=== PATIENT | female | born 1985 | race African-American/Black ===

== ENCOUNTER 2021-05-10 09:02 | Emergency (ER) | payer BC, OTHER ==
[~2021-05-10] VITALS: Ht 170.2 cm; Wt 63.5 kg
[2021-05-10 09:41] LABS: HEMATOCRIT. 34.1 % (36.0-48.0); HEMOGLOBIN. 11.4 g/dL (12.0-16.0); MEAN CORPUSCULAR HEMOGLOBIN 27.9 pg (28.0-32.0); MEAN CORPUSCULAR VOLUME 83.8 fL (81.0-99.0); MEAN PLATELET VOLUME 7.8 fl (7.4-10.4); PLATELET 309 x1000/uL (130-400); RED BLOOD CELL COUNT 4.07 mill/uL (4.2-5.4)
[2021-05-10] MEDS ORDERED: ONDANSETRON HCL 4MG/2ML INJ IV ONE (09:45)
[2021-05-10 09:51] LABS: CHLORIDE 104 mEq/L (98-107)
[2021-05-10 09:52] LABS: INR 1.1; PROTHROMBIN TIME 11.4 sec (9.6-11.0)
[2021-05-10 10:01] LABS: B-HCG QUANTITATIVE < 1 mIU/mL (<3)
[2021-05-10] MEDS ORDERED: MORPHINE SULFATE 4 MG/ML CPJ (NOT FOR IM USE) IV ONE (10:15)
[2021-05-10 10:25] LABS: PLATELET ESTIMATE NORMAL
[2021-05-10] MEDS ORDERED: POTASSIUM CHLORIDE 20MEQ TABLET SR PO ONE (11:45)
[2021-05-10 12:34] LABS: CLARITY URINE CLEAR (CLEAR); COLOR URINE YELLOW (YELLOW); KETONES URINE 4+ (NEGATIVE); LEUKOCYTE ESTERASE URINE NEGATIVE (NEGATIVE); NITRITE URINE NEGATIVE (NEGATIVE); OCCULT BLOOD URINE NEGATIVE (NEGATIVE); PH URINE 7.5 (4.5-8.0); PROTEIN URINE 1+ (NEGATIVE); SPECIFIC GRAVITY URINE 1.029 (1.005-1.030); UROBILINOGEN URINE 0.2 E.U./dL (0.2-1.0)
[2021-05-10] MEDS ORDERED: ONDA4TAB5 MT (12:39)
[2021-05-10] MEDS ORDERED: ONDANSETRON 4MG ODT PO ONE (12:45)
[2021-05-10 13:00] VITALS: BP 128/77
== END 2021-05-10 13:04 | disposition home or self-care (01) ==
LOC: ER 09:02
DX: R10.9 Unspecified abdominal pain (principal); E87.6 Hypokalemia; Z88.6 Allergy status to analgesic agent
CPT/HCPCS: 36415; 76705; 76856; 80053; 81003; 81025; 83690; 84702; 85025; 85610; 86850; 86900; 86901; 96374; 96375; 99285; J2270; J2405; Q0162